=== PATIENT | female | born 1965 | race Caucasian/White ===

== ENCOUNTER 2019-09-23 14:41 | Emergency (ER) | payer MEDICAID ==
[~2019-09-23] VITALS: Ht 167.6 cm; Wt 62.4 kg
[2019-09-23 14:59] VITALS: BP 136/88
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
--- NOTE | 2019-09-23 15:51 | NUR ---
ASSISTED MD WITH PT PHYSICAL ASSESSMENT.
== END 2019-09-23 16:20 | disposition home or self-care (01) ==
LOC: ED 15:50
DX: K40.91 Unilateral inguinal hernia, without obstruction or gangrene, recurrent (principal); F17.200 Nicotine dependence, unspecified, uncomplicated; J44.9 Chronic obstructive pulmonary disease, unspecified
CPT/HCPCS: 99281

== ENCOUNTER 2020-03-08 13:24 | Inpatient (IN) | payer MEDICAID ==
[~2020-03-08] VITALS: Ht 167.6 cm; Wt 62.6 kg
[2020-03-08] MEDS ORDERED: SODIUM CHLORIDE FLUSH 10ML SYR IVF ONE (15:00)
--- NOTE | 2020-03-08 15:22 | NUR ---
BREAK RN: PT RESTING ON RAMIRO. NADN. MCCOY.
[2020-03-08 15:41] LABS: BASOPHILS # (AUTO) 0.04 x10^3/uL (0-0.1); BASOPHILS % (AUTO) 1 % (0-1); EOSINOPHILS # (AUTO) 0.09 x10^3/uL (0-0.4); EOSINOPHILS % (AUTO) 2 % (1-7); LYMPHOCYTES # (AUTO) 0.82 x10^3/uL (1-3.4); LYMPHOCYTES % (AUTO) 16 % (22-44); MD NO; MEAN CORPUSCULAR HEMOGLOBIN 35.3 pg (27.0-34.8); MEAN CORPUSCULAR HGB CONC 32.3 g/dL (32.4-35.8); MEAN CORPUSCULAR VOLUME 109.4 fL (80-100); MEAN PLATELET VOLUME 8.3 fL (7.4-10.4); MONOCYTES # (AUTO) 0.43 x10^3/uL (0.2-0.8); MONOCYTES % (AUTO) 8 % (2-9); NEUTROPHILS # (AUTO) 3.86 x10^3/uL (1.8-6.8); NEUTROPHILS % (AUTO) 74 % (42-75); PLATELET COUNT 143 x10^3/uL (130-400); RED BLOOD COUNT 5.21 x10^6/uL (3.82-5.3); RED CELL DISTRIBUTION WIDTH 15.6 % (9.6-15.2)
[2020-03-08 15:49] LABS: ALBUMIN 3.1 g/dL (3.4-5.0); ANION GAP 3 mmol/L (5-15); CHLORIDE 111 mmol/L (98-107)
[2020-03-08 15:54] LABS: ALANINE AMINOTRANSFERASE 23 U/L (12-78); ALKALINE PHOSPHATASE 119 U/L (45-117); BILIRUBIN,TOTAL 1.5 mg/dL (0.2-1.0); CREATININE 0.53 mg/dL (0.55-1.02); TOTAL PROTEIN 6.7 g/dL (6.4-8.2)
[2020-03-08 15:58] LABS: INTERNATIONAL NORMALIZED RATIO 1.58 (0.93-1.1); PROTHROMBIN TIME 16.3 Seconds (9.6-11.5)
[2020-03-08] MEDS ORDERED: FUROSEMIDE 40 MG/4 ML ONE (17:08)
[2020-03-08] MEDS ORDERED: FUROSEMIDE 40 MG/4 ML IV ONE (17:30)
--- NOTE | 2020-03-08 18:20 | NUR ---
PT UP TO RESTROOM X 2. AMBULATES WITH A STEADY GAIT. AWAITING MD MANN FOR ADMIT DECISION
--- NOTE | 2020-03-08 19:00 | NUR ---
Received report from Neri ALVAREZ
--- NOTE | 2020-03-08 19:57 | NUR ---
REPORT CALLED TO EMELY ALVAREZ TO ASSUME CARE UPON TRANSFER TO UNIT
[2020-03-08 20:30] VITALS: BP 143/98
[2020-03-08 21:00] VITALS: BP 143/98
[2020-03-08] MEDS ORDERED: ONDANSETRON 2MG/ML, 2ML IVPush PRN (22:30)
[2020-03-08] MEDS ORDERED: morphine SULFATE 10 MG/ML, 1ML IVPush PRN (22:30)
[2020-03-08] MEDS ORDERED: POTASSIUM CHLORIDE 20 MEQ TAB.ER.PRT PO ONE (22:30)
[2020-03-08] MEDS ORDERED: TRAZODONE 50MG TABLET PO PRN (22:30)
[2020-03-08] MEDS ORDERED: ACETAMINOPHEN 325 MG TABLET PO PRN (22:30)
[2020-03-08] MEDS ORDERED: hydrALAzine 20 MG/ML, 1ML IVPush PRN (22:30)
[2020-03-08] MEDS: ENOXAPARIN 40 MG/0.4 ML SQ SCH (22:32)
[2020-03-08] MEDS: NICOTINE 14MG/24 HR PATCH.TD24 TD SCH (22:33)
[2020-03-08] MEDS ORDERED: ALBUTEROL HFA 90 MCG/SPRAY INH PRN (23:30)
[2020-03-09 01:30] VITALS: BP 147/99
[2020-03-09 05:33] LABS: MEAN CORPUSCULAR HEMOGLOBIN 35.3 pg (27.0-34.8); MEAN CORPUSCULAR HGB CONC 31.8 g/dL (32.4-35.8); MEAN PLATELET VOLUME 8.3 fL (7.4-10.4); PLATELET COUNT 115 x10^3/uL (130-400); RED BLOOD COUNT 5.22 x10^6/uL (3.82-5.3); RED CELL DISTRIBUTION WIDTH 15.3 % (9.6-15.2)
[2020-03-09 05:40] LABS: ANION GAP 5 mmol/L (5-15); CALCIUM 8.1 mg/dL (8.5-10.1); CHLORIDE 108 mmol/L (98-107); CREATININE 0.62 mg/dL (0.55-1.02)
[2020-03-09 06:27] LABS: BASOPHILS # (AUTO) 0.03 x10^3/uL (0-0.1); BASOPHILS % (AUTO) 1 % (0-1); EOSINOPHILS % (AUTO) 2 % (1-7); LYMPHOCYTES # (AUTO) 0.84 x10^3/uL (1-3.4); LYMPHOCYTES % (AUTO) 20 % (22-44); MD SCAN; MONOCYTES # (AUTO) 0.38 x10^3/uL (0.2-0.8); MONOCYTES % (AUTO) 9 % (2-9); NEUTROPHILS # (AUTO) 2.86 x10^3/uL (1.8-6.8); NEUTROPHILS % (AUTO) 68 % (42-75)
[2020-03-09 08:03] VITALS: BP 145/97
[2020-03-09] MEDS ORDERED: FUROSEMIDE 40 MG/4 ML IV SCH (09:00)
[2020-03-09] MEDS: FLUTICASONE/VILANTEROL 100-25MCG/INH INH SCH (09:22)
[2020-03-09] MEDS: LISINOPRIL 10 MG TABLET PO SCH ×2 (09:23→21:29)
[2020-03-09] MEDS: POTASSIUM CHLORIDE 20 MEQ TAB.ER.PRT PO SCH (12:00)
[2020-03-09 12:33] LABS: TROPONIN I 0.026 ng/mL (0.000-0.045)
[2020-03-09 13:30] VITALS: BP 120/84
[2020-03-09 20:41] VITALS: BP 129/88
[2020-03-09] MEDS: NICOTINE 14MG/24 HR PATCH.TD24 TD SCH (21:30)
[2020-03-09] MEDS: ENOXAPARIN 40 MG/0.4 ML SQ SCH (21:30)
[2020-03-10 00:24] VITALS: BP 133/91
[2020-03-10 05:17] LABS: MEAN CORPUSCULAR HEMOGLOBIN 35.3 pg (27.0-34.8); MEAN CORPUSCULAR VOLUME 110.1 fL (80-100); MEAN PLATELET VOLUME 8.2 fL (7.4-10.4); PLATELET COUNT 119 x10^3/uL (130-400); RED BLOOD COUNT 5.13 x10^6/uL (3.82-5.3); RED CELL DISTRIBUTION WIDTH 15.2 % (9.6-15.2)
[2020-03-10 05:18] LABS: ALBUMIN 2.8 g/dL (3.4-5.0); ANION GAP 4 mmol/L (5-15); CHLORIDE 105 mmol/L (98-107)
[2020-03-10 05:21] LABS: ALANINE AMINOTRANSFERASE 22 U/L (12-78); ALKALINE PHOSPHATASE 100 U/L (45-117); BILIRUBIN,TOTAL 1.3 mg/dL (0.2-1.0); CREATININE 0.45 mg/dL (0.55-1.02)
[2020-03-10 06:18] LABS: BASOPHILS # (AUTO) 0.05 x10^3/uL (0-0.1); BASOPHILS % (AUTO) 1 % (0-1); EOSINOPHILS # (AUTO) 0.05 x10^3/uL (0-0.4); EOSINOPHILS % (AUTO) 1 % (1-7); LYMPHOCYTES # (AUTO) 0.95 x10^3/uL (1-3.4); LYMPHOCYTES % (AUTO) 17 % (22-44); MD SCAN; MONOCYTES # (AUTO) 0.59 x10^3/uL (0.2-0.8); MONOCYTES % (AUTO) 11 % (2-9); NEUTROPHILS # (AUTO) 4.04 x10^3/uL (1.8-6.8); NEUTROPHILS % (AUTO) 71 % (42-75)
[2020-03-10 07:06] VITALS: BP 126/89
[2020-03-10] MEDS ORDERED: REGADENOSON 0.4 MG/5 ML SYRINGE ONE (08:03)
[2020-03-10] MEDS ORDERED: FUROSEMIDE 40 MG/4 ML IV SCH (09:00)
[2020-03-10] MEDS: LISINOPRIL 10 MG TABLET PO SCH (10:58)
[2020-03-10] MEDS: POTASSIUM CHLORIDE 20 MEQ TAB.ER.PRT PO SCH (10:58)
[2020-03-10] MEDS: FLUTICASONE/VILANTEROL 100-25MCG/INH INH SCH (10:59)
[2020-03-10 12:48] VITALS: BP 108/70
[2020-03-10] MEDS ORDERED: POTA20TA6 PO (15:18)
[2020-03-10] MEDS ORDERED: FURO40TA6 PO (15:18)
[2020-03-10] MEDS ORDERED: LISI-167 PO (15:18)
[2020-03-10] MEDS ORDERED: FLUT1AER INH (15:18)
[2020-03-10] MEDS ORDERED: PRED20TA PO (15:18)
[2020-03-10] MEDS ORDERED: ALBU18HF INH (15:18)
[2020-03-11] MEDS ORDERED: FUROSEMIDE 40 MG TABLET PO SCH (09:00)
== END 2020-03-10 18:08 | disposition home or self-care (01) | DRG 291 ==
LOC: ED 14:16 → EDIP 19:10 → 4EST 20:25
PROVIDERS: ADMIT Family Medicine; ATTEND Hospitalist
DX: I13.0 Hypertensive heart and chronic kidney disease with heart failure and stage 1 through stage 4 chronic kidney disease, or unspecified chronic kidney disease (principal); I50.43 Acute on chronic combined systolic (congestive) and diastolic (congestive) heart failure; J96.21 Acute and chronic respiratory failure with hypoxia; C34.90 Malignant neoplasm of unspecified part of unspecified bronchus or lung; E44.1 Mild protein-calorie malnutrition; E87.0 Hyperosmolality and hypernatremia; E87.4 Mixed disorder of acid-base balance; J44.1 Chronic obstructive pulmonary disease with (acute) exacerbation; E87.3 Alkalosis; D69.6 Thrombocytopenia, unspecified; D75.1 Secondary polycythemia; D75.89 Other specified diseases of blood and blood-forming organs; F10.10 Alcohol abuse, uncomplicated; F17.210 Nicotine dependence, cigarettes, uncomplicated; H26.9 Unspecified cataract; J43.9 Emphysema, unspecified; M79.89 Other specified soft tissue disorders; N18.9 Chronic kidney disease, unspecified; Z82.49 Family history of ischemic heart disease and other diseases of the circulatory system; Z91.19 Patient's noncompliance with other medical treatment and regimen; Z79.899 Other long term (current) drug therapy; Z71.6 Tobacco abuse counseling
CPT/HCPCS: 36415; 71045; 71250; 78452; 80048; 80053; 82607; 82962; 83605; 83880; 84443; 84484; 85025; 85610; 87040; 93005; 93017; 93306; 99195; G0378; J1650; J1940; J2785; A9502; C9898; J7512